=== PATIENT | male | born 1990 | race Caucasian/White ===

== ENCOUNTER 2023-01-11 18:42 | Emergency (ER) | payer BC, OTHER ==
[2023-01-11] MEDS ORDERED: Ketorolac 30 MG/ML SDV IM ONE (19:27)
== END 2023-01-11 19:45 | disposition home or self-care (01) ==
LOC: DL.ED 18:42
DX: M79.642 Pain in left hand (principal); R22.32 Localized swelling, mass and lump, left upper limb; W23.1XXA Caught, crushed, jammed, or pinched between stationary objects, initial encounter
CPT/HCPCS: 73120; 96372; 99282; 99283; J1885

== ENCOUNTER 2025-03-22 21:50 | Emergency (ER) | payer BC, OTHER ==
[2025-03-22] MEDS ORDERED: Sodium Chloride 0.9% 10 ML Syringe FLUSH PRN (22:06)
[2025-03-22 22:27] LABS: BASOPHILS PERCENT AUTO 0.4 % (0.0-1.0); EOSINOPHILS PERCENT AUTO 1.4 % (1.0-3.0); HEMOGLOBIN 15.8 g/dL (14.0-18.0); MEAN CORPUSCULAR HEMOGLOBIN 31.2 pg (27.0-34.0); MEAN CORPUSCULAR HGB CONC 33.6 g/dL (33.0-35.0); MEAN CORPUSCULAR VOLUME 92.9 fL (80-100); MONOCYTES PERCENT AUTO 12.1 % (2-8); NEUTROPHILS PERCENT AUTO 58.1 % (42.2-75.2); PLATELET COUNT,PLT 249 10^3/uL (150-450); RED BLOOD CELL COUNT 5.06 10^6/uL (4.6-6.2); WHITE BLOOD CELL COUNT,WBC 9.3 10^3/uL (5.0-10.0)
[2025-03-22 22:48] LABS: A/G RATIO 1.1; ALANINE AMINOTRANSFERASE,ALT 78 U/L (16-63); ALBUMIN 3.9 g/dL (3.4-5.0); ALKALINE PHOSPHATASE 111 U/L (46-116); ANION GAP 15.2 mEq/L (7-13); ASPARTATE AMNIOTRANSFERASE,AST 42 U/L (15-37); BILIRUBIN TOTAL 0.8 mg/dL (0.2-1.0); BLOOD UREA NITROGEN,BUN 11 mg/dL (7-18); BUN/CREATININE RATIO 12.4 (No establ ref range); C-REACTIVE PROTEIN < 0.50 ng/dL (<=0.50); CALCIUM 9.2 mg/dL (8.5-10.1); CARBON DIOXIDE,CO2 26 mmol/L (21-32); CHLORIDE,CL 103 mmol/L (98-107); CREATININE 0.89 mg/dL (0.70-1.30); EST CRCL DRUG DOSING (CG) 119.66 mL/min; ESTIMATED GFR 115 mL/min (>=60); GLUCOSE RANDOM 111 mg/dL (70-99); POTASSIUM,K 4.2 mmol/L (3.5-5.1); PROTEIN TOTAL,TP 7.3 g/dL (6.4-8.2); SODIUM,NA 140 mmol/L (136-145)
[2025-03-22 22:51] LABS: LACTIC ACID 1.4 mmol/L (0.4-2.0)
[2025-03-22] MEDS: Ketorolac 30 MG/ML SDV IVPUSH ONE (23:23)
== END 2025-03-22 23:27 | disposition home or self-care (01) ==
LOC: DL.ED 21:50
DX: S61.402A Unspecified open wound of left hand, initial encounter (principal); F17.210 Nicotine dependence, cigarettes, uncomplicated; V00.141A Fall from scooter (nonmotorized), initial encounter; Y93.89 Activity, other specified
CPT/HCPCS: 36415; 73120; 80053; 83605; 85025; 86140; 87040; 87070; 96374; 99283; J1885